=== PATIENT | female | born 1950 | race Caucasian/White ===

== ENCOUNTER → 2016-06-13 | Outpatient (CLI) | payer BC ==
[~2016-06-13] MED LIST: ASPCH81 PO; ASPCH81X PO; ATOR10TA88 PO; BECL0.3A INH; CALC200T PO; CHOL200010 PO; COEN1CAP46 PO; COEN400C5 PO; DOCU-94 PO; FESO8TAB PO; FLUT0.15 NAE; LEVAAER2 INH; PRD/1 PO; PRED10TA PO; ZNTT/150 PO
== END | disposition home or self-care (01) ==
LOC: C.PATHSPEC 12:47
PROVIDERS: ATTEND Obstetrics & Gynecology
DX: N95.0 Postmenopausal bleeding (principal); N85.8 Other specified noninflammatory disorders of uterus

== ENCOUNTER → 2016-07-04 | Outpatient (CLI) | payer BC ==
--- NOTE | 2016-07-04 15:07 | MAMMOGRAPHY REPORT ---
BILATERAL DIGITAL SCREENING MAMMOGRAM WITH CAD: 07/04/2016 CLINICAL HISTORY: Routine screening. Patient has no complaints. TECHNIQUE: Current study was also evaluated with a Computer Aided Detection (CAD) system. Bilatera l CC and MLO views were obtained. COMPARISON: Comparison is made to exams dated: 06/29/2015 mammogram, 06/28/2014 mammogram, 06/25/2013 ma mmogram, 06/24/2012 mammogram, 06/20/2011 mammogram, and 06/19/2010 mammogram - [facility]. BREAST COMPOSITION: The tissue of both breasts is heterogeneously dense, which may obscure small ma sses. FINDINGS: No suspicious masses, calcifications, or areas of architectural distortion are noted in e ither breast. There has been no significant interval change compared to prior exams. Bilateral asym metries and bilateral benign-appearing calcifications are not significantly changed. Biopsy marker clips are again noted in the right lower inner quadrant. IMPRESSION: ACR BI-RADS CATEGORY 2: BENIGN There is no mammographic evidence of malignancy. A 1 year screening mammogram is recommended. The p atient will receive written notification of the results. Approximately 10% of breast cancers are not detected with mammography. A negative mammographic repor t should not delay biopsy if a clinically suggestive mass is present. Luiza Brito M.D. /:07/04/2016 12:25:07 Auto Brake Technician: Wanda Servin, [facility] letter sent: Normal 1/2 BI-RADS Code: ACR BI-RADS Category 2: Benign
== END | disposition home or self-care (01) ==
LOC: C.MAMM 11:17
PROVIDERS: ATTEND Obstetrics & Gynecology
DX: Z12.31 Encounter for screening mammogram for malignant neoplasm of breast (principal)

== ENCOUNTER → 2016-07-04 | Outpatient (CLI) | payer BC | END | disposition home or self-care (01) | LOC: C.LAB 10:15 | PROVIDERS: ATTEND Obstetrics & Gynecology | DX: N95.0 Postmenopausal bleeding (principal) ==

== ENCOUNTER → 2016-08-13 | Outpatient (CLI) | payer BC ==
[~2016-08-13] MED LIST changes: -ASPCH81 PO; +ATOR10TA82 PO; -ATOR10TA88 PO; -CALC200T PO; -COEN1CAP46 PO; -PRED10TA PO
== END | disposition home or self-care (01) ==
LOC: C.PAPS 14:23
PROVIDERS: ATTEND Obstetrics & Gynecology
DX: Z12.4 Encounter for screening for malignant neoplasm of cervix (principal)

== ENCOUNTER → 2016-08-27 | Day surgery (SDC) | payer BC ==
[2016-08-09 08:22] VITALS: Ht 163.8 cm; Wt 62.7 kg
--- NOTE | 2016-08-25 12:02 | HISTORY & PHYSICAL EXAMINATION ---
DATE OF ADMISSION: 08/27/2016 The patient is for surgery on 08/27/2016. CHIEF COMPLAINT: Postmenopausal bleeding. HISTORY OF PRESENT ILLNESS: The patient is a 66-year-old white female 2, para 0-1-1-1 with intermittent vaginal spotting. Ultrasound was done on 04/25/2016 and this showed an endometrial lining of 4.8 mm. Uterus was 44 mL in total volume. There was evidence of fibroids within the myometrium. The left ovary was normal and the right ovary showed a small simple cyst of 1.9 cm. Some trace free fluid was noted within the endometrial cavity. A mass could not be ruled out. Hysterosonogram done 06/13/2016 showed an endometrial thickness of 5 mm. The endometrial cavity was not well visualized at the time of hysterosonogram however. Endometrial biopsy was obtained and read as atrophic endometrium. The patient has had some further episodes of light bleeding. Given that the endometrial cavity was not well visualized, and the fact that she has had some additional bleeding despite the negative biopsy, hysteroscopy and D&C is recommended. The patient's last Pap smear was 08/13/2016 and was negative. PAST MEDICAL HISTORY: ALLERGIES: THE PATIENT REPORTS REACTION TO PENICILLIN AND SULFA. MEDICATIONS: She takes atorvastatin 10 mg daily, Toviaz 8 mg daily, QVAR inhaler 2 puffs daily and prednisone 2 mg a day. She also takes a baby aspirin daily along with Colace, vitamin D, and Coenzyme Q10. PAST SURGICAL HISTORY: She has had cholecystectomy as well as and surgery on her right thumb. ILLNESSES: Hypercholesterolemia. Sarcoidosis. She has also suffered in the past with bronchitis. She does have a bulging disc in her low back and occasionally has acid reflux. FAMILY HISTORY: Her mother had rectal cancer and also heart disease. Her father had heart disease and diabetes. Her brother has diabetes. SOCIAL HISTORY: The patient is . She has never smoked. She does drink alcohol 1-2 drinks per week. PHYSICAL EXAMINATION: VITAL SIGNS: Height 5 feet 3-1/2 inches, weight 138 pounds. HEAD, EYES, EARS, NOSE, AND THROAT: Grossly within normal limits. NECK: Supple without masses. CHEST: Her lungs are clear with no wheezing. HEART: Regular rate and rhythm. No murmurs, gallops or rubs. ABDOMEN: Soft and nontender with no masses or hernias palpable. PELVIC: External genitalia normal. Vagina pink and smooth. Cervix pink and closed without lesions. Uterus within normal limit size, nontender, adnexa nontender with no masses palpable. Rectovaginal exam negative. EXTREMITIES: No cyanosis, clubbing or edema. IMPRESSION: Postmenopausal bleeding with inadequate visualization of the endometrial cavity by hysterosonogram. PLAN: The patient is for hysteroscopy, dilation of the cervix and curettage with possible removal of polyp/lesion. We have discussed the risks of bleeding, infection, perforation of the uterus and possible need for further surgery or treatment. The alternative treatment of no surgery is not recommended. The patient wishes to proceed with the above surgery. GIORGIO
[~2016-08-27] VITALS: Ht 163.8 cm; Wt 62.7 kg
[~2016-08-27] MED LIST changes: +ATROPINE SULFATE 0.1 MG/ML 5ML SYR IV PRN; +DEXAMETHASONE SOD INJ 4 MG/ML VIAL ONE; +EpHEDrine SULFATE INJ 50 MG/ML AMP IV PRN; +FENTANYL CITRATE INJ 50 MCG/1 ML 2 ML VIAL IV PRN; +FENTANYL CITRATE INJ 50 MCG/1 ML 2 ML VIAL ONE; +HYDROCORTISONE SOD SUCCINATE 100 MG/2 ML VIAL ONE; +IBUPROFEN 200 MG TAB ONE; +IBUPROFEN 600 MG TAB PO PRN; +KETOROLAC TROMETHAMINE 30 MG/ML VIAL IV. PRN; +LACTATED RINGER'S 1000ML 1,000 ML IV SCH; +LIDOCAINE HCL 2% 2 ML VIAL (20MG/ML) ONE; +MIDAZOLAM HCL 1 MG/ML 2ML VIAL ONE; +ONDANSETRON INJ 2 MG/ML 2 ML VIAL IV PRN; +ONDANSETRON INJ 2 MG/ML 2 ML VIAL ONE; +PROPOFOL IV EMULSION 10 MG/ML 20 ML VIAL IV ONE; +SCOPOLAMINE 1.5 MG TDSY TD ONE; +SODIUM CHLORIDE 0.9% 1000ML 1,000 ML IV SCH
--- NOTE | 2016-08-27 07:51 | History & Physical Bridge - SC ---
H&P Re-Evaluation Bridge Note: I have examined the patient, reviewed the History & Physical and in the interval since the performance of the History & Physical I have noted the following changes of clinical significance: No changes noted
--- NOTE | 2016-08-27 08:29 | [facility] Post Operative Brief Note ---
Immediate Operative Summary Operative Date Aug 27, 2016. Pre-Operative Diagnosis Post menopausal bleeding Post-Operative Diagnosis Same as preop, with pathology pending Procedure(s) Performed Dilatation And Curettage, Hysteroscopy Surgeon Dr. Martinez Steam Pan Sponger Surgeon(s) None Estimated Blood Loss 10 mL Findings See dictated note. Specimens A: Endocervical curettings B: Endometrial curettings Urinalysis and urine culture Complication(s) None Disposition Recovery Room / PACU
--- NOTE | 2016-08-27 08:40 | Discharge Instructions-SurgCtr ---
Discharge Instructions Date of Service Aug 27, 2016. Visit Reason for Visit: Post Menopausal Bleeding Discharge Discharge Diagnosis / Problem: S/P Hysteroscopy, D&C Discharge Goals Goal(s): Diagnostic testing, Therapeutic intervention Activity Recommendations Activity Limitations: per Instructions/Follow-up section ACTIVITY RECOMMENDATIONS: * Avoid tampons, douching, hot tubs, pools, and intercourse until bleeding has stopped. * May shower as usual. * No strenuous activity for 24-48 hours. After 24-48 hours, you may do anything you feel like doing (driving and sports are okay). SPECIAL CARE INSTRUCTIONS: Special Diet: * Mild nausea may occur in the immediate post-operative period. * Take clear liquids such as tea, cola or bouillon until all nausea has subsided; you may then resume your normal diet. Special Care: * Light bleeding and vaginal spotting can last from a few days to 3-4 weeks. Call your doctor if bleeding becomes heavier than the heaviest part of your period. * Check your temperature twice a day for one week. If it goes above 100.4 degrees Fahrenheit (38.0 Celsius), notify your doctor. * Call if you have persistent severe cramping or foul vaginal discharge. [phone] * Call your doctor's office for an appointment for 2-4 weeks after your surgery. [phone] Martinez FOLLOW-UP VISIT: Call your doctor's office for an appointment for 2-4 weeks after your surgery. Anesthesia . Post Anesthesia Instructions: If you have had General Anesthesia or IV Sedation: * Do not drive today. * Resume driving when surgeon permits. * Do not make important decisions or sign legal documents today. * Call surgeon for: 1. Temperature elevations greater than 101 degrees F. 2. Uncontrollable pain. 3. Excessive bleeding. 4. Persistent nausea and vomiting. 5. Medication intolerance (nausea, vomiting or rash). * For nausea and vomiting use only clear liquids such as: tea, soda, bouillon until nausea subsides, then gradually increase diet as tolerated. * If you have any concerns or questions, call your surgeon's office. If physician is unavailable and it is an emergency, call 911 or go to the nearest emergency room. . Diet Recommendations Home Diet: resume previous diet Procedures Procedures Performed: Dilatation And Curettage, Hysteroscopy Pending Studies Studies pending at discharge: yes List of pending studies: We will call you with the results of the pathology report. Urine analysis and urine culture were also done, please call our office for these results at [phone]. Culture should be ready Monday August 29, 2016. Medical Emergencies . Who to Call and When: Medical Emergencies: If at any time you feel your situation is an emergency, please call 911 immediately. . Non-Emergent Contact Non-Emergency issues call your: Suppository Molding Machine Operator Call Non-Emergent contact if: temperature is above 100.5, your pain is not controlled . . "Provider Documentation" section prepared by Mica Martinez.
[2016-08-27 09:14] VITALS: TEMP 36.5
[2016-08-27 09:34] LABS: URINE APPEARANCE CLEAR (CLEAR); URINE BILIRUBIN NEG (NEG); URINE COLOR YELLOW; URINE NITRITE NEG (NEG); URINE SPECIFIC GRAVITY 1.009 (1.000-1.030); UROBILINOGEN NEG (NEG)
[2016-08-27 09:36] LABS: MANUAL MICROSCOPIC REQUIRED? NO; REVIEW REQ? NO
--- NOTE | 2016-08-27 09:45 | Anesthesia Progress Nt - [facility] ---
Anesthesia Post Op Note Date & Time Aug 27, 2016 at 09:44 Vital Signs Pain Intensity: 2.0 Vital Signs Past 12 Hours Date Time Temp Pulse Resp B/P Pulse Ox O2 Delivery O2 Flow Rate FiO2 08/27/16 09:14 36.5 75 18 135/83 100 Room Air 08/27/16 09:08 57 13 100 08/27/16 09:08 57 13 08/27/16 09:05 152/84 08/27/16 09:04 36.0 58 14 152/84 100 Room Air 08/27/16 09:03 61 22 98 08/27/16 09:03 61 22 08/27/16 09:00 145/76 08/27/16 08:58 62 13 99 08/27/16 08:58 62 13 08/27/16 08:55 147/72 08/27/16 08:53 59 18 08/27/16 08:53 59 18 100 08/27/16 08:50 152/77 08/27/16 08:48 56 12 08/27/16 08:48 58 12 100 08/27/16 08:45 146/80 08/27/16 08:43 59 15 100 08/27/16 08:43 59 15 08/27/16 08:40 152/80 08/27/16 08:38 58 9 08/27/16 08:38 57 9 98 08/27/16 08:35 146/83 08/27/16 08:33 64 16 08/27/16 08:33 64 16 157/80 100 08/27/16 08:33 36.6 64 16 157/80 100 Mask 6 08/27/16 07:01 36.7 82 16 126/81 98 Room Air Notes Mental Status: alert / awake / arousable, participated in evaluation Pt Amnestic to Procedure: Yes Nausea / Vomiting: adequately controlled Pain: adequately controlled Airway Patency, RR, SpO2: stable & adequate BP & HR: stable & adequate Hydration State: stable & adequate Anesthetic Complications: no major complications apparent
[2016-08-27 09:49] VITALS: BP 125/79; PULSE 60; O2SAT 99
--- NOTE | 2016-08-27 10:59 | OPERATIVE REPORT ---
DATE OF OPERATION: 08/27/2016 PREOPERATIVE DIAGNOSIS: Postmenopausal bleeding. POSTOPERATIVE DIAGNOSIS: Same with pathology pending. PROCEDURE: Hysteroscopy and uterine dilation and curettage. SURGEON: Mica Martinez MD ANESTHESIA: General. ANESTHESIOLOGIST: Rikki Cleary MD DESCRIPTION OF PROCEDURE: The patient was taken to the operating room where general anesthesia was administered. After an adequate level was obtained, she was placed in dorsal lithotomy position. Vulva, vagina, and cervix were prepped with Betadine solution. The patient was draped. The patient's bladder was straight catheterized. Hazy urine was obtained. This was sent for urinalysis and urine culture. Thomas retractor was then placed in the posterior fornix. The anterior lip of the cervix was grasped with a single tooth tenaculum. The patient's cervix was dilated and endocervical curettings were obtained. These were scant. The cervix was then further dilated to allow hysteroscopy. This was performed and the only findings were a small bulge of tissue along the posterior wall of the endometrial cavity and what appeared to be a small cyst just at the entrance of the external cervical os. Hysteroscope was removed after photos were taken. A small serrated curette was then used to curette the endometrial cavity. Again, curettings were scant. There was minimal tissue obtained. The endometrial cavity was visualized once more with the hysteroscope and the small protrusion of tissue was gone. The small cyst along the cervical canal was no longer present. At this point, the procedure was ended. Estimated blood loss was 10 mL. The patient tolerated the procedure well. It should be noted that the endometrial cavity sounded to 6 cm. I attest to the content of the Intraoperative Record and any orders documented therein. Any exceptions are noted below. MTDD
== END | disposition home or self-care (01) ==
LOC: X.SURG 06:49
PROVIDERS: ATTEND Obstetrics & Gynecology
DX: N95.0 Postmenopausal bleeding (principal); E78.00 Pure hypercholesterolemia, unspecified; D86.9 Sarcoidosis, unspecified; Z80.8 Family history of malignant neoplasm of other organs or systems; Z82.49 Family history of ischemic heart disease and other diseases of the circulatory system; Z83.3 Family history of diabetes mellitus

== ENCOUNTER → 2017-01-10 | Outpatient (CLI) | payer BC ==
[~2017-01-10] MED LIST changes: -ATOR10TA82 PO; +ATOR10TA88 PO; -ATROPINE SULFATE 0.1 MG/ML 5ML SYR IV PRN; -DEXAMETHASONE SOD INJ 4 MG/ML VIAL ONE; -EpHEDrine SULFATE INJ 50 MG/ML AMP IV PRN; -FENTANYL CITRATE INJ 50 MCG/1 ML 2 ML VIAL IV PRN; -FENTANYL CITRATE INJ 50 MCG/1 ML 2 ML VIAL ONE; -HYDROCORTISONE SOD SUCCINATE 100 MG/2 ML VIAL ONE; -IBUPROFEN 200 MG TAB ONE; -IBUPROFEN 600 MG TAB PO PRN; -KETOROLAC TROMETHAMINE 30 MG/ML VIAL IV. PRN; -LACTATED RINGER'S 1000ML 1,000 ML IV SCH; -LIDOCAINE HCL 2% 2 ML VIAL (20MG/ML) ONE; -MIDAZOLAM HCL 1 MG/ML 2ML VIAL ONE; -ONDANSETRON INJ 2 MG/ML 2 ML VIAL IV PRN; -ONDANSETRON INJ 2 MG/ML 2 ML VIAL ONE; -PROPOFOL IV EMULSION 10 MG/ML 20 ML VIAL IV ONE; -SCOPOLAMINE 1.5 MG TDSY TD ONE; -SODIUM CHLORIDE 0.9% 1000ML 1,000 ML IV SCH
== END | disposition home or self-care (01) ==
LOC: C.LABBC 08:25
PROVIDERS: ATTEND Internal Medicine Pulmonary Disease
DX: D86.9 Sarcoidosis, unspecified (principal)

== ENCOUNTER → 2017-02-12 | Outpatient (CLI) | payer BC | END | disposition home or self-care (01) | LOC: C.MAMM 15:05 | PROVIDERS: ATTEND Internal Medicine Pulmonary Disease | DX: D86.9 Sarcoidosis, unspecified (principal); M85.851 Other specified disorders of bone density and structure, right thigh; M85.852 Other specified disorders of bone density and structure, left thigh ==

== ENCOUNTER → 2017-02-26 | Outpatient (CLI) | payer BC ==
[2017-02-26 11:30] LABS: CALCIUM URINE 13.3 mg/dl
== END | disposition home or self-care (01) ==
LOC: C.LABBC 08:22
PROVIDERS: ATTEND Internal Medicine Pulmonary Disease
DX: D86.9 Sarcoidosis, unspecified (principal)

== ENCOUNTER → 2017-03-27 | Outpatient (CLI) | payer BC ==
[~2017-03-27] MED LIST changes: +ATOR10TA82 PO; -ATOR10TA88 PO
--- NOTE | 2017-03-27 09:25 | DIAGNOSTIC IMAGING REPORT ---
CHEST 2 VIEWS ROUTINE CLINICAL HISTORY: SARCOIDOSIS COMPARISON STUDY: 12/28/2015 FINDINGS: The bones soft tissues and hemidiaphragms are normal. The cardiomediastinal silhouette is normal. The lungs are clear. The pulmonary vasculature is normal. IMPRESSION: Negative chest. The above report was generated using voice recognition software. It may contain grammatical, syntax or spelling errors. Electronically signed by: Krystian Lockwood M.D. 03/27/2017 9:24 AM Dictated Date/Time: 03/27/2017 9:23 AM
== END | disposition home or self-care (01) ==
LOC: C.RADBC 09:06
PROVIDERS: ATTEND Physician Assistant
DX: D86.9 Sarcoidosis, unspecified (principal)

== ENCOUNTER → 2017-05-07 | Outpatient (CLI) | payer BC ==
[2017-05-07 17:07] LABS: URINE APPEARANCE CLEAR (CLEAR); URINE BILIRUBIN NEG (NEG); URINE COLOR YELLOW; URINE EPITHELIAL CELL AUTO 0-5 /lpf (0-5); URINE NITRITE NEG (NEG); UROBILINOGEN NEG (NEG)
[2017-05-07 17:09] LABS: MANUAL MICROSCOPIC REQUIRED? NO; REVIEW REQ? NO
== END | disposition home or self-care (01) ==
LOC: C.LABSPEC 16:16
PROVIDERS: ATTEND Physician Assistant
DX: L29.8 Other pruritus (principal); R30.0 Dysuria

== ENCOUNTER → 2017-07-10 | Outpatient (CLI) | payer BC ==
[~2017-07-10] MED LIST changes: +RANI150T81 PO; -ZNTT/150 PO
--- NOTE | 2017-07-10 15:13 | MAMMOGRAPHY REPORT ---
BILATERAL DIGITAL SCREENING MAMMOGRAM TOMOSYNTHESIS WITH CAD: 07/10/2017 CLINICAL HISTORY: Routine screening. Patient has no complaints. TECHNIQUE: Breast tomosynthesis in addition to standard 2D mammography was performed. Current study was also evaluated with a Computer Aided Detection (CAD) system. COMPARISON: Comparison is made to exams dated: 07/04/2016 mammogram, 06/29/2015 mammogram, 06/28/2014 ma mmogram, 06/25/2013 mammogram, 06/24/2012 mammogram, and 06/19/2010 mammogram - [facility]. BREAST COMPOSITION: The tissue of both breasts is heterogeneously dense, which may obscure small mas ses. FINDINGS: There is a benign-appearing grouping of coarse heterogeneous calcifications in the right up per outer quadrant posterior leg. A stable circumscribed 4.4 mm mass with internal punctate calcific ation in the upper outer anterior left breast appears similar dating back to at least 2011, therefore likely benign. There are 2 stable biopsy marker clips in the medial right breast. No new suspiciou s mass, architectural distortion or cluster of microcalcifications is seen. IMPRESSION: ACR BI-RADS CATEGORY 1: NEGATIVE There is no mammographic evidence of malignancy. A 1 year screening mammogram is recommended. The pa tient will receive written notification of the results. Approximately 10% of breast cancers are not detected with mammography. A negative mammographic report should not delay biopsy if a clinically suggestive mass is present. Ute Dooley M.D. ay/:07/10/2017 10:18:51 Tray Checker: Wanda MULLEN(Subha)(M), [facility] letter sent: Normal 1/2 BI-RADS Code: ACR BI-RADS Category 1: Negative
== END | disposition home or self-care (01) ==
LOC: C.MAMM 09:46
PROVIDERS: ATTEND Obstetrics & Gynecology
DX: Z12.31 Encounter for screening mammogram for malignant neoplasm of breast (principal)

== ENCOUNTER → 2017-08-23 | Outpatient (CLI) | payer BC | END | disposition home or self-care (01) | LOC: C.LABBC 10:09 | PROVIDERS: ATTEND Nurse Practitioner Adult Health | DX: N39.0 Urinary tract infection, site not specified (principal) ==